=== PATIENT | female | born 1950 | race Caucasian/White ===

== ENCOUNTER 2020-12-25 08:42 | Outpatient (REF) | payer MEDICARE, SELFPAY ==
--- NOTE | ~2020-12-25 | MM_ITS ---
EXAMINATION: MM SCREENING DIGITAL BREAST TOMOSYNTHESIS, BILATERAL CLINICAL INFORMATION: Screening. Asymptomatic. The lifetime risk of breast cancer based on the Tyrer-Cuzick Model is 8.4%. COMPARISON: Mammography: December 29, 2018 and studies dating back to January 21, 2014 TECHNIQUE: Digital breast tomosynthesis is performed in both the craniocaudal and mediolateral oblique views along with computer-aided detection (CAD). Synthesized 2D images are generated from the tomosynthesis. FINDINGS: There are scattered areas of fibroglandular density (ACR BI-RADS breast composition Category b). There are no significant masses, abnormal calcifications, or other abnormalities. MM/MM tomosynthesis screening BI IMPRESSION: There are no significant changes from prior study. ASSESSMENT: BI-RADS 1: Negative RECOMMENDATION: Routine annual mammography screening. This patient's information was entered into a reminder system with a target due date for their next mammogram.
== END 2020-12-25 08:43 | disposition home or self-care (01) ==
LOC: HO.MAMMO 08:42
PROVIDERS: PCP Pediatrics; Visit Provider Pediatrics
DX: Z12.31 Encounter for screening mammogram for malignant neoplasm of breast (principal)
CPT/HCPCS: 77063; 77067

== ENCOUNTER 2021-12-27 07:43 | Outpatient (REF) | payer MEDICARE, SELFPAY ==
--- NOTE | ~2021-12-27 | MM_ITS ---
EXAMINATION: MM SCREENING DIGITAL BREAST TOMOSYNTHESIS, BILATERAL CLINICAL INFORMATION: Screening. Asymptomatic. The lifetime risk of breast cancer based on the Tyrer-Cuzick Model is 3%. COMPARISON: Mammography: 12/25/2020, 12/29/2018, 12/15/2017 TECHNIQUE: Digital breast tomosynthesis is performed in both the craniocaudal and mediolateral oblique views along with computer-aided detection (CAD). Synthesized 2D images are generated from the tomosynthesis. FINDINGS: There are scattered areas of fibroglandular density (ACR BI-RADS breast composition Category b). There are no significant masses, abnormal calcifications, or other abnormalities. Parenchymal pattern is similar to prior studies. There is no developing density or architectural abnormality. The axilla are unremarkable. MM/MM tomosynthesis screening BI IMPRESSION: No mammographic evidence of malignancy. ASSESSMENT: BI-RADS 1: Negative RECOMMENDATION: Routine annual mammography screening. This patient's information was entered into a reminder system with a target due date for their next mammogram.
== END 2021-12-27 07:44 | disposition home or self-care (01) ==
LOC: HO.MAMMO 07:43
PROVIDERS: PCP Student in an Organized Health Care Education/Training Program; Visit Provider Student in an Organized Health Care Education/Training Program
DX: Z12.31 Encounter for screening mammogram for malignant neoplasm of breast (principal)
CPT/HCPCS: 77063; 77067

== ENCOUNTER 2022-12-31 08:16 | Outpatient (REF) | payer MEDICARE, SELFPAY | END 2022-12-31 08:17 | disposition home or self-care (01) | LOC: HO.MAMMO 08:16 | PROVIDERS: PCP Student in an Organized Health Care Education/Training Program; Visit Provider Student in an Organized Health Care Education/Training Program | DX: Z12.31 Encounter for screening mammogram for malignant neoplasm of breast (principal) | CPT/HCPCS: 77063; 77067 ==

== ENCOUNTER → 2022-12-31 08:30 | Outpatient (BNV) | payer MEDICARE, SELFPAY | PROVIDERS: PCP Student in an Organized Health Care Education/Training Program; Visit Provider Radiology Diagnostic Radiology | DX: Z12.31 Encounter for screening mammogram for malignant neoplasm of breast (principal) | CPT/HCPCS: 77063; 77067 ==

== ENCOUNTER 2024-01-06 08:18 | Outpatient (REF) | payer MEDICARE, SELFPAY ==
--- NOTE | ~2024-01-06 | MM_ITS ---
EXAMINATION: MM SCREENING DIGITAL BREAST TOMOSYNTHESIS, BILATERAL CLINICAL INFORMATION: Screening. Asymptomatic. COMPARISON: Mammography: Comparison is made with available priors TECHNIQUE: Digital breast mammography with tomosynthesis is performed in both the craniocaudal and mediolateral oblique views along with computer-aided detection (CAD). FINDINGS: There are scattered areas of fibroglandular density (ACR BI-RADS breast composition Category b). There are no significant masses, abnormal calcifications, or other abnormalities. MM/MM tomosynthesis screening BI IMPRESSION: No mammographic evidence of malignancy. ASSESSMENT: BI-RADS BI-RADS 1 - Negative RECOMMENDATION: Routine annual mammography screening. 1 year F/U This examination should not preclude the clinical evaluation of a suspicious palpable abnormality. This patient's information was entered into a reminder system with a target due date for their next mammogram. Electronically signed by: Kamila Martin DO 01/18/2024 05:15 PM EDT
== END 2024-01-06 08:19 | disposition home or self-care (01) ==
LOC: HO.MAMMO 08:18
PROVIDERS: PCP Family Medicine; Visit Provider Family Medicine
DX: Z12.31 Encounter for screening mammogram for malignant neoplasm of breast (principal)
CPT/HCPCS: 77063; 77067

== ENCOUNTER → 2024-01-06 08:30 | Outpatient (BNV) | payer MEDICARE, SELFPAY | PROVIDERS: PCP Family Medicine; Visit Provider Internal Medicine | DX: Z12.31 Encounter for screening mammogram for malignant neoplasm of breast (principal) | CPT/HCPCS: 77063; 77067 ==

== ENCOUNTER 2025-02-10 08:00 | Outpatient (REF) | payer MEDICARE, SELFPAY ==
--- NOTE | ~2025-02-10 | MM_ITS ---
EXAMINATION: MM SCREENING DIGITAL BREAST TOMOSYNTHESIS, BILATERAL CLINICAL INFORMATION: Screening. Asymptomatic. COMPARISON: Comparison made to multiple prior, most recent January 06, 2024, and most remote November 21, 2016. TECHNIQUE: Digital breast tomosynthesis is performed in mediolateral oblique and craniocaudal views along with computer-aided detection (CAD). Synthesized 2D images are generated from the tomosynthesis. FINDINGS: BREAST COMPOSITION: There are scattered areas of fibroglandular density. BILATERAL BREASTS: No significant masses, suspicious calcifications or other abnormalities are seen in either breast. MM/MM tomosynthesis screening BI IMPRESSION: BILATERAL BREASTS: Negative, no mammographic evidence of malignancy. Normal interval follow-up is recommended in 12 months. ASSESSMENT: BI-RADS: Category 1: Negative RECOMMENDATION: Routine annual mammography screening. FOLLOW-UP: 1 year F/U This examination should not preclude the clinical evaluation of a suspicious palpable abnormality. This patient's information was entered into a reminder system with a target due date for their next mammogram. Electronically signed by: Dane Snow MD 02/12/2025 12:26 [facility]
--- OUTSIDE RECORDS SUMMARY | 2025-02-10 08:04 | XMS_ITS ---
Author Name [facility] Organization Unknown Care Team Organization Name Specialty Phone Email Start Date End Da te [facility] Termed, PROVIDER Primary Care 02/18/202211/11
--- OUTSIDE RECORDS SUMMARY | 2025-02-10 08:04 | XMS_ITS | Patient Health Record ---
Author Organization [facility] Address [address] [place] [id number] Care Team Providers Care Floor Specialist Name Role Phone Miguel Gomez Unavailable [phone] Reason For Referral No Information Plan Of Treatment No Information
== END 2025-02-10 08:01 | disposition home or self-care (01) ==
LOC: HO.MAMMO 08:00
PROVIDERS: PCP Family Medicine; Visit Provider Family Medicine
DX: Z12.31 Encounter for screening mammogram for malignant neoplasm of breast (principal)
CPT/HCPCS: 77063; 77067

== ENCOUNTER → 2025-02-10 08:15 | Outpatient (BNV) | payer MEDICARE, SELFPAY | PROVIDERS: PCP Family Medicine; Visit Provider Radiology Body Imaging | DX: Z12.31 Encounter for screening mammogram for malignant neoplasm of breast (principal) | CPT/HCPCS: 77063; 77067 ==